=== PATIENT | female | born 1970 | race Two or more races ===

== ENCOUNTER 2017-01-08 07:37 | Observation (INO) | payer OTHER ==
--- NOTE | 2017-01-08 07:45 | PDOC ---
History of Present Illness - General Chief Complaint: Syncope/Near Syncope Stated Complaint: SYNCOPE Time Seen by Provider: 01/08/17 07:45 - History of Present Illness Initial Comments: 46 year old previously healthy female presenting with generalized weakness, blurry vision, nausea and one episode of unresponsiveness after a bout of frequent large volume urination. She states that she had 4-5 episodes of large volume (otherwise normal in color and normal in odor without dysuria) urination through the night and again around 6 AM this morning after which she was feeling weak while walking back from the bathroom to the bedroom. Her assisted her to the bed and she immediately had a 15 second episode of unresponsiveness when she layed back into the bed where her eyes were open and her hands were tensed. Her witnessed the episode and says there was no jerking or odd movements and the patient was simply unresponsive. The patient denies any knowledge of the event but had no issues directly after the event and remembers getting to the bed. She hasn't had this episode before. She is also complaining of "feeling my heart beat" and feels as if her heart is beating faster than usual with more prominence. She also complains of some nausea and blurry vision that started this morning. She denies any head trauma, tongue lacerations and has not had any of these symptoms in the past. She has a slightly drooped left eye at baseline. Denies family cardiac history. Denies fevers, chills, vomiting, diarrhea, constipation, chest pain, headache, or other sick symptoms. 01/08/17 08:45 Past History - Past Medical History Allergies/Adverse Reactions: Allergies Allergy/AdvReac Type Severity Reaction Status Date / Time No Known Allergies Allergy Verified 01/08/17 07:43 Home Medications: Ambulatory Orders Cephalexin [Keflex] 500 mg PO QID #28 capsule 12/17/14 Phenazopyridine HCl [Pyridium] 100 mg PO TID #6 tablet 12/17/14 Suicide Attempt (Hx): No - Immunization History Immunization Up to Date: Yes - Psycho/Social/Smoking Cessation Hx Anxiety: No Suicidal Ideation: No Smoking History: Never smoked Hx Alcohol Use: No Drug/Substance Use Hx: No Substance Use Type: None Hx Substance Use Treatment: No Review of Systems - Review of Systems Constitutional: Yes: Weakness. No: Chills, Diaphoresis, Fever HEENTM: Yes: Blurred Vision. No: Tearing, Double Vision Respiratory: No: Shortness of Breath Cardiac (ROS): No: Chest Pain ABD/GI: Yes: Nausea. No: Constipated, Diarrhea, Vomiting : Yes: Frequency. No: Dysuria, Discharge *Physical Exam - Physical Exam General Appearance: Yes: Nourished, Appropriately Dressed. No: Apparent Distress HEENT: positive: EOMI, RAEANN, Normal Voice Neck: positive: Trachea midline, Normal Thyroid, Supple. negative: Tender, Rigid Respiratory/Chest: positive: Lungs Clear, Normal Breath Sounds. negative: Chest Tender, Respiratory Distress, Accessory Muscle Use, Labored Respiration, Decreased Breath Sounds, Rhonchi, Stridor, Wheezing Cardiovascular: positive: Regular Rhythm, Regular Rate, S1, S2. negative: Edema , JVD, Murmur Gastrointestinal/Abdominal: positive: Normal Bowel Sounds, Flat, Soft. negative : Tender Musculoskeletal: positive: Normal Inspection. negative: CVA Tenderness Extremity: positive: Normal Capillary Refill, Normal Inspection, Normal Range of Motion. negative: Tender Integumentary: positive: Normal Color, Dry, Warm Neurologic: positive: sheet catcher II-XII NML intact, Fully Oriented, Alert, Normal Mood/ Affect, Motor Strength 5/5 ED Treatment Course - LABORATORY CBC & Chemistry Diagram: 01/08/17 09:05 01/08/17 09:05 Medical Decision Making - Medical Decision Making 46 year old previously healthy female with an episode of unresponsiveness in the setting of frequent urination, generalized weakness, and blurry vision. This is most concerning for hyperglycemia vs. electrolyte disorder vs. orthostatic hypotension. Most likely The former of the three given the constellation of symptoms and good recent PO intake and lack of medications that could cause electrolyte disorder. ACS is on our differential as well as arrhythmia despite lack of risk factors. 01/08/17 09:03 Electrolytes within normal limits, CBC fine, and UA normal with negative Troponin as well. Will admit for tele obs and consult to cards under Dr. Jimenez. *DC/Admit/Observation/Transfer Diagnosis at time of Disposition: Syncope, Palpitations - Discharge Dispostion Disposition: HOME Condition at time of disposition: Improved Admit: Yes Decision to Admit order Date/Time: 01/08/17 12:48
[2017-01-08 07:46] VITALS: BMI 28.3
[2017-01-08] MEDS ORDERED: MAG HYDROX/AL HYDROX/SIMETH 30 ML UNIT-DOSE CUP PO ONE (08:32)
[2017-01-08] MEDS ORDERED: FAMOTIDINE 20 MG/50 ML IVPB 50 ML IVPB ONE ×2 (08:33→09:18)
[2017-01-08] MEDS ORDERED: MAG HYDROX/AL HYDROX/SIMETH 30 ML UNIT-DOSE CUP ONE (09:17)
[2017-01-08 09:18] LABS: BASOPHIL 0.5 % (0-2.0); EOSINOPHIL 1.2 % (0-4.5); MCH 28.3 pg (25.7-33.7); MCHC 33.1 g/dl (32.0-36.0); MEAN CELL VOLUME 85.4 fl (80-96); MEAN PLT VOLUME 8.6 fl (7.5-11.1); NEUTROPHILS 78.4 % (42.8-82.8); PLATELET COUNT 320 K/MM3 (134-434); RDW 13.5 % (11.6-15.6); WHITE BLOOD COUNT 9.2 K/mm3 (4.0-10.0)
[2017-01-08] MEDS ORDERED: SODIUM CHLORIDE 1,000 ML IV STA (09:28)
[2017-01-08 09:42] LABS: ALBUMIN 3.5 g/dl (3.4-5.0); ANION GAP 5 (8-16); BILIRUBIN,TOTAL 0.4 mg/dL (0.2-1.0); CALCIUM 8.9 mg/dL (8.5-10.1); CO2 29 mmol/L (21-32); CREATININE 0.5 mg/dL (0.55-1.02); GLUCOSE,RANDOM 88 mg/dL (74-106); MAGNESIUM 2.3 mg/dL (1.8-2.4); SGOT/AST 14 U/L (15-37); SGPT/ALT 20 U/L (12-78); TOT PROT 7.1 g/dl (6.4-8.2)
[2017-01-08 09:43] LABS: ALK PHOS 63 U/L (45-117)
--- NOTE | 2017-01-08 09:44 | PDOC ---
Attending Attestation - Physicial Exam PE: 01/08/17 09:49 GENERAL: Awake, alert, and fully oriented, in no acute distress HEAD: No signs of trauma EYES: PERRLA, EOMI, sclera anicteric, conjunctiva clear. Denies blurry vision. ENT: Auricles normal inspection, hearing grossly normal, nares patent, oropharynx clear without exudates. Moist mucosa NECK: Normal ROM, supple, no lymphadenopathy, JVD, or masses LUNGS: Breath sounds equal, clear to auscultation bilaterally. No wheezes, and no crackles HEART: Complains of palpitations, Regular rate and rhythm, normal S1 and S2, no murmurs, rubs or gallops ABDOMEN: Soft, nontender, normoactive bowel sounds. No guarding, no rebound. No masses EXTREMITIES: Normal range of motion, no edema. No clubbing or cyanosis. No calf tenderness. No cords, erythema. NEUROLOGICAL: Cranial nerves II through XII grossly intact. Normal speech, normal gait. Sensation is intact. SKIN: Warm, Dry, normal turgor, no rashes or lesions noted. Documentation prepared by Eve Martinez, acting as medical education manager for Ramona Osborne DO. <Eve Martinez - Last Filed: 01/08/17 09:49> - Resident Resident Name: AnnemarieShaliniquirino - ED Attending Attestation I have performed the following: I have examined & evaluated the patient, The case was reviewed & discussed with the resident, I agree w/resident's findings & plan, Exceptions are as noted - HPI HPI: 01/08/17 09:42 46yo female with urinary freq last night. Then this AM, 15 seconds of syncope and palpitations. No recent travel. No calf ttp, no cp. C/o epigastric fullness. Concern for atypical presentation for cardiac problem. Will check labs , ekg, cxr, newscast director, trop, ua. Urinary freq without dysuria. - Medical Decision Making 01/08/17 09:42 I, Dr. Ramona Osborne DO, attest that this document has been prepared under my direction and personally reviewed by me in its entirety. I further attest, that it accurately reflects all work, treatment, procedures and medical decision -making performed by me. 01/08/17 09:55 a/p: 46yo female with urinary freq, syncope, epigastric discomfort and palpitations -concern for poss atypical presentation of cardiac -labs -cxr -ekg -nontraumatic syncope, in bed -neuro intact -low risk for neuro cause of syncope -PERC negative -will check UA, labs, glucose, monitor 01/08/17 11:30 labr reviewed -concern for epigastric pain, syncope, palpitations. UA clear. Will discuss with PMD. Recommend staying for syncope workup and further eval/trops. 01/08/17 12:[address] Wilkes who accepts pt to service. <Ramona Osborne - Last Filed: 01/08/17 12:01>
[2017-01-08 10:09] LABS: URINE APPEARANCE CLEAR; URINE BILIRUBIN NEGATIVE (NEGATIVE); URINE BLOOD 1+ (NEGATIVE); URINE COLOR STRAW; URINE GLUCOSE (UA) NEGATIVE (NEGATIVE); URINE KETONE NEGATIVE (NEGATIVE); URINE LEUK ESTERASE NEGATIVE (NEGATIVE); URINE NITRITE NEGATIVE (NEGATIVE); URINE PROTEIN NEGATIVE (NEGATIVE); URINE UROBILINOGEN NEGATIVE mg/dL (0.2-1.0)
[2017-01-08 10:26] LABS: URINE RBC <1 /hpf (0-3); URINE WBC 1 /hpf (3-5)
[2017-01-08 10:36] LABS: THYROID STIMULATING HORMONE 0.81 uIU/ml (0.358-3.74)
[2017-01-08 11:19] LABS: TROPONIN I 0.02 ng/ml (0.00-0.05)
--- NOTE | 2017-01-08 12:59 | HP ---
Admitting History and Physical - Primary Care Physician PCP: Nano Wilkes - Admission History of Present Illness: 46 year old previously healthy female presenting with generalized weakness, full feeling in her stomach and one episode of unresponsiveness after a bout of frequent large volume urination. She states that she had 4-5 episodes of large volume (otherwise normal in color and normal in odor without dysuria) urination through the night starting 2:00am, then 4;00am and then again around 6 AM this morning after which she was feeling weak while walking back from the bathroom to the bedroom. Her assisted her to the bed and she immediately had a 15 second episode of unresponsiveness when she layed back into the bed where her eyes were open and her hands were tensed. Her witnessed the episode and says there was no jerking or odd movements and the patient was simply unresponsive. The patient denies any knowledge of the event but had no issues directly after the event and remembers getting to the bed. She hasn't had this episode before. She is also complaining of "feeling my heart beat" and feels as if her heart is beating faster than usual with more prominence. curently she says her heart not beating fast and she doesnot feel urge to urinate but she has full feeling in her stomach in ER she got famotidine and maalox History Source: Patient - Smoking History Smoking history: Never smoked Have you smoked in the past 12 months: No - Alcohol/Substance Use Hx Alcohol Use: No Home Medications - Allergies Allergies/Adverse Reactions: Allergies Allergy/AdvReac Type Severity Reaction Status Date / Time No Known Allergies Allergy Verified 01/08/17 07:43 - Home Medications Home Medications: Ambulatory Orders Cephalexin [Keflex] 500 mg PO QID #28 capsule 12/17/14 Phenazopyridine HCl [Pyridium] 100 mg PO TID #6 tablet 12/17/14 Review of Systems - Review of Systems Neck: reports: Other (left sided neck pain) Gastrointestinal: reports: Other (fullness of stomach) Physical Examination Vital Signs: Vital Signs Temperature 97.6 F 01/08/17 07:44 Pulse Rate 83 01/08/17 07:44 Respiratory Rate 20 01/08/17 07:44 Blood Pressure 112/74 01/08/17 07:44 O2 Sat by Pulse Oximetry (%) 97 01/08/17 07:44 Constitutional: Yes: Calm Neck: Yes: Trachea Midline Cardiovascular: Yes: Regular Rate and Rhythm, S1, S2 Respiratory: Yes: CTA Bilaterally Gastrointestinal: Yes: Normal Bowel Sounds, Soft Musculoskeletal: Yes: Other (no neck swelling no deformity no tenderness) Edema: No Neurological: Yes: Alert, Oriented Imaging - Results Chest X-ray: Report Reviewed Problem List - Problems (1) Syncope Assessment/Plan: tele carotid doppler echo lipid panel hga1c Code(s): R55 - SYNCOPE AND COLLAPSE (2) Palpitations Assessment/Plan: r/o arythmia tsh tele echo cardio evaluation Code(s): R00.2 - PALPITATIONS (3) Bloating Assessment/Plan: abdominal sono lipase gi eval Code(s): R14.0 - ABDOMINAL DISTENSION (GASEOUS) (4) Increased urinary frequency Assessment/Plan: check hga1c urine culture and anaylsis Code(s): R35.0 - FREQUENCY OF MICTURITION
--- NOTE | 2017-01-08 13:23 | CON.CARD ---
Consult Consult Specialty:: Cardiology - History of Present Illness Chief Complaint: syncope History of Present Illness: 46 F without medical problems. She had urinary frequency last night. At 6 AM after returning form she had sweats weakness and diaphoresis and then passed out. No prior history of syncope, arrhythmia. There is a prior history of palpitations which wake her up at night. Denies fevers but reports chills over- night. - History Source History Provided By: Patient, Family Member Limitations to Obtaining History: No Limitations - Past Surgical History Past Surgical History: Yes: None - Alcohol/Substance Use Hx Alcohol Use: No - Smoking History Smoking history: Never smoked Have you smoked in the past 12 months: No Home Medications - Allergies Allergies/Adverse Reactions: Allergies Allergy/AdvReac Type Severity Reaction Status Date / Time No Known Allergies Allergy Verified 01/08/17 07:43 - Home Medications Home Medications: Ambulatory Orders Cephalexin [Keflex] 500 mg PO QID #28 capsule 12/17/14 Phenazopyridine HCl [Pyridium] 100 mg PO TID #6 tablet 12/17/14 Family Disease History - Family Disease History Family History: Unremarkable (no fhx sudden ) Review of Systems - Review of Systems Constitutional: reports: No Symptoms Eyes: reports: No Symptoms HENT: reports: No Symptoms Neck: reports: No Symptoms Cardiovascular: reports: Palpitations Respiratory: reports: No Symptoms Gastrointestinal: reports: No Symptoms Genitourinary: reports: Frequency Breasts: reports: No Symptoms Reported Musculoskeletal: reports: No Symptoms Vital Signs: Vital Signs Temperature 97.6 F 01/08/17 07:44 Pulse Rate 83 01/08/17 07:44 Respiratory Rate 20 01/08/17 07:44 Blood Pressure 112/74 01/08/17 07:44 O2 Sat by Pulse Oximetry (%) 97 01/08/17 07:44 Constitutional: Yes: Well Nourished, No Distress, Calm Eyes: Yes: Conjunctiva Clear, EOM Intact HENT: Yes: Atraumatic, Normocephalic Neck: Yes: Supple, Trachea Midline Respiratory: Yes: Regular, CTA Bilaterally Gastrointestinal: Yes: Normal Bowel Sounds, Soft Cardiovascular: Yes: Regular Rate and Rhythm JVD: No Carotid Bruit: No PMI: Non-Displaced Heart Sounds: Yes: S1, S2 Musculoskeletal: Yes: WNL Edema: No Integumentary: Yes: WNL Neurological: Yes: Alert, Oriented Imaging - Results EKG: Report Reviewed (NSR Nl axis and interval.) Problem List - Problems (1) Palpitations Code(s): R00.2 - PALPITATIONS (2) Syncope Code(s): R55 - SYNCOPE AND COLLAPSE Assessment/Plan 46 F with chronic ho palpitations and presenting with post micturition syncope. ECG is normal. Advise monitoring on telemetry for 24 hours and obtain echocardiogram Likely to be vasovagal and post-micturition syncope.
--- NOTE | 2017-01-08 15:20 | EKG ---
Test Reason : Blood Pressure : / mmHG Vent. Rate : 081 BPM Atrial Rate : 081 BPM P-R Int : 154 ms QRS Dur : 078 ms QT Int : 348 ms P-R-T Axes : 041 047 005 degrees QTc Int : 404 ms POOR DATA QUALITY, INTERPRETATION MAY BE ADVERSELY AFFECTED NORMAL SINUS RHYTHM NORMAL ECG NO PREVIOUS ECGS AVAILABLE Confirmed by NUNO HAMILTON MD ([id number]) on 01/08/2017 3:19:46 PM Referred By: Confirmed By:NUNO HAMILTON MD
[2017-01-08 15:56] LABS: TROPONIN I 0.02 ng/ml (0.00-0.05)
--- NOTE | 2017-01-09 08:30 | DS ---
Physical Examination Vital Signs: Vital Signs Temperature 98.6 F 01/09/17 05:25 Pulse Rate 80 01/09/17 05:25 Respiratory Rate 18 01/09/17 05:25 Blood Pressure 109/67 01/09/17 05:25 O2 Sat by Pulse Oximetry (%) 97 01/08/17 20:00 Findings/Remarks: no complaints Cardiovascular: Yes: Regular Rate and Rhythm Respiratory: Yes: Regular, CTA Bilaterally Gastrointestinal: Yes: Normal Bowel Sounds, Soft. No: Tenderness Edema: No Neurological: Yes: Alert, Oriented Discharge Summary Reason For Visit: SYNCOPE Current Active Problems Increased urinary frequency (Acute) Palpitations (Acute) Syncope (Acute) Hospital Course: 46 year old previously healthy female presenting with generalized weakness, full feeling in her stomach and one episode of unresponsiveness after a bout of frequent large volume urination. She states that she had 4-5 episodes of large volume (otherwise normal in color and normal in odor without dysuria) urination through the night starting 2:00am, then 4;00am and then again around 6 AM this morning after which she was feeling weak while walking back from the bathroom to the bedroom. Her assisted her to the bed and she immediately had a 15 second episode of unresponsiveness when she layed back into the bed where her eyes were open and her hands were tensed. Her witnessed the episode and says there was no jerking or odd movements and the patient was simply unresponsive. The patient denies any knowledge of the event but had no issues directly after the event and remembers getting to the bed. She hasn't had this episode before. She is also complaining of "feeling my heart beat" and feels as if her heart is beating faster than usual with more prominence. curently she says her heart not beating fast and she doesnot feel urge to urinate but she has full feeling in her stomach in ER she got famotidine and maalox History Source: Patient - Smoking History Smoking history: Never smoked - Problems (1) Syncope--probably micturation syncope Assessment/Plan: tele --no arrhythmia noted carotid doppler echo nl lv lipid panel hga1c Code(s): R55 - SYNCOPE AND COLLAPSE (2) Palpitations Assessment/Plan: r/o arrhythmia--none on tele tsh cardio evaluation noted Code(s): R00.2 - PALPITATIONS (3) Bloating Assessment/Plan: abdominal sono lipase gi eval Code(s): R14.0 - ABDOMINAL DISTENSION (GASEOUS) (4) Increased urinary frequency Assessment/Plan: check hga1c urine culture and analysis Code(s): R35.0 - FREQUENCY OF MICTURITION Condition: Improved - Instructions Referrals: Nano Wilkes MD [Primary Care Provider] - 1 Week - Home Medications Comprehensive Discharge Medication List: Ambulatory Orders Cephalexin [Keflex] 500 mg PO QID #28 capsule 12/17/14 Phenazopyridine HCl [Pyridium] 100 mg PO TID #6 tablet 12/17/14
[2017-01-09 08:32] LABS: BASOPHIL 1.3 % (0-2.0); EOSINOPHIL 1.2 % (0-4.5); MCH 27.9 pg (25.7-33.7); MCHC 32.8 g/dl (32.0-36.0); MEAN PLT VOLUME 8.5 fl (7.5-11.1); PLATELET COUNT 323 K/MM3 (134-434); RDW 13.4 % (11.6-15.6); WHITE BLOOD COUNT 7.5 K/mm3 (4.0-10.0)
[2017-01-09 08:41] VITALS: PULSE 86
[2017-01-09 08:54] LABS: ALBUMIN 3.5 g/dl (3.4-5.0); ANION GAP 10 (8-16); BILIRUBIN,TOTAL 0.6 mg/dL (0.2-1.0); CALCIUM 8.5 mg/dL (8.5-10.1); CO2 24 mmol/L (21-32); CREATININE 0.5 mg/dL (0.55-1.02); GLUCOSE,RANDOM 85 mg/dL (74-106); SGOT/AST 15 U/L (15-37); SGPT/ALT 20 U/L (12-78)
[2017-01-09 08:56] LABS: ALK PHOS 59 U/L (45-117); CPK 80 IU/L (26-192); TROPONIN I < 0.02 ng/ml (0.00-0.05)
--- NOTE | 2017-01-09 09:47 | CONSULT ---
Consult - text type - Consultation Consultation Note: Neurology History of Present Illness 46 year old previously healthy female presenting with generalized weakness, blurry vision, nausea and one episode of unresponsiveness after a bout of frequent large volume urination. She states that she had 4-5 episodes of large volume (otherwise normal in color and normal in odor without dysuria) urination through the night before admission and again morning of admission which she was feeling weak while walking back from the bathroom to the bedroom. Her assisted her to the bed and she immediately had a 15 second episode of unresponsiveness when she got back into the bed where her eyes were open and her hands were tensed. Her witnessed the episode and says there was no jerking or odd movements and the patient was simply unresponsive. The patient denies any knowledge of the event but had no issues directly after the event and remembers getting to the bed. She hasn't had this episode before. She is also complaining of "feeling my heart beat" and feels as if her heart is beating faster than usual with more prominence. She did get cardiac evaluation wand consult with likely postmicturation syncope. CD checked and did not show HD significant stenosis. Echo with normal LV function and no valvular abnormalities. CT head reviwed also and no acute changes. Neurologically she is stable and at baseline. Past History - Past Medical History Allergies/Adverse Reactions: Allergies Allergy/AdvReac Type Severity Reaction Status Date / Time No Known Allergies Allergy Verified 01/08/17 07:43 Home Medications: Ambulatory Orders Cephalexin [Keflex] 500 mg PO QID #28 capsule 12/17/14 Phenazopyridine HCl [Pyridium] 100 mg PO TID #6 tablet 12/17/14 Suicide Attempt (Hx): No - Immunization History Immunization Up to Date: Yes - Psycho/Social/Smoking Cessation Hx Anxiety: No Suicidal Ideation: No Smoking History: Never smoked Hx Alcohol Use: No Drug/Substance Use Hx: No Substance Use Type: None Hx Substance Use Treatment: No Review of Systems - Review of Systems Constitutional: Yes: Weakness. No: Chills, Diaphoresis, Fever HEENTM: Yes: Blurred Vision. No: Tearing, Double Vision Respiratory: No: Shortness of Breath Cardiac (ROS): No: Chest Pain ABD/GI: Yes: Nausea. No: Constipated, Diarrhea, Vomiting : Yes: Frequency. No: Dysuria, Discharge *Physical Exam - Physical Exam General Appearance: Yes: Nourished, Appropriately Dressed. No: Apparent Distress HEENT: positive: EOMI, RAEANN, Normal Voice Neck: positive: Trachea midline, Normal Thyroid, Supple. negative: Tender, Rigid Respiratory/Chest: positive: Lungs Clear, Normal Breath Sounds. negative: Chest Tender, Respiratory Distress, Accessory Muscle Use, Labored Respiration, Decreased Breath Sounds, Rhonchi, Stridor, Wheezing Cardiovascular: positive: Regular Rhythm, Regular Rate, S1, S2. negative: Edema , JVD, Murmur Gastrointestinal/Abdominal: positive: Normal Bowel Sounds, Flat, Soft. negative : Tender Musculoskeletal: positive: Normal Inspection. negative: CVA Tenderness Extremity: positive: Normal Capillary Refill, Normal Inspection, Normal Range of Motion. negative: Tender Integumentary: positive: Normal Color, Dry, Warm Neurologic: positive: plant custodian II-XII NML intact, Fully Oriented, Alert, Normal Mood/ Affect, Motor Strength 08/29 ED Treatment Course CBCD WBC 7.5 K/mm3 (4.0-10.0) 01/09/17 08:00 RBC 4.75 M/mm3 (3.60-5.2) 01/09/17 08:00 Hgb 13.2 GM/dL (10.7-15.3) 01/09/17 08:00 Hct 40.4 % (32.4-45.2) 01/09/17 08:00 MCV 85.0 fl (80-96) 01/09/17 08:00 MCHC 32.8 g/dl (32.0-36.0) 01/09/17 08:00 RDW 13.4 % (11.6-15.6) 01/09/17 08:00 Plt Count 323 K/MM3 (134-434) 01/09/17 08:00 MPV 8.5 fl (7.5-11.1) 01/09/17 08:00 CMP Sodium 139 mmol/L (136-145) 01/09/17 08:00 Potassium 3.8 mmol/L (3.5-5.1) 01/09/17 08:00 Chloride 105 mmol/L (98-107) 01/09/17 08:00 Carbon Dioxide 24 mmol/L (21-32) 01/09/17 08:00 Anion Gap 10 (8-16) 01/09/17 08:00 BUN 13 mg/dL (7-18) D 01/09/17 08:00 Creatinine 0.5 mg/dL (0.55-1.02) L 01/09/17 08:00 Creat Clearance w eGFR > 60 (>60) 01/09/17 08:00 Calcium 8.5 mg/dL (8.5-10.1) 01/09/17 08:00 Total Bilirubin 0.6 mg/dL (0.2-1.0) D 01/09/17 08:00 AST 15 U/L (15-37) 01/09/17 08:00 ALT 20 U/L (12-78) 01/09/17 08:00 Alkaline Phosphatase 59 U/L (45-117) 01/09/17 08:00 Total Protein 7.0 g/dl (6.4-8.2) 01/09/17 08:00 Albumin 3.5 g/dl (3.4-5.0) 01/09/17 08:00 Medical Decision Making 46 year old previously healthy female presenting with generalized weakness, blurry vision, nausea and one episode of unresponsiveness after a bout of frequent large volume urination. She states that she had 4-5 episodes of large volume (otherwise normal in color and normal in odor without dysuria) urination through the night before admission and again morning of admission which she was feeling weak while walking back from the bathroom to the bedroom. Her assisted her to the bed and she immediately had a 15 second episode of unresponsiveness when she got back into the bed where her eyes were open and her hands were tensed. Her witnessed the episode and says there was no jerking or odd movements and the patient was simply unresponsive. The patient denies any knowledge of the event but had no issues directly after the event and remembers getting to the bed. She hasn't had this episode before. She is also complaining of "feeling my heart beat" and feels as if her heart is beating faster than usual with more prominence. She did get cardiac evaluation wand consult with likely postmicturation syncope. CD checked and did not show HD significant stenosis. Echo with normal LV function and no valvular abnormalities. CT head reviwed also and no acute changes. Neurologically she is stable and at baseline. Plan is for discharge Follow up with Cardiology If event recurs, would check EEG or can be done as outpatient Maintain hydration Avoid sudden ambulation
--- NOTE | 2017-01-09 09:53 | DS ---
Physical Examination Vital Signs: Vital Signs Temperature 98.7 F 01/09/17 08:40 Pulse Rate 86 01/09/17 08:40 Respiratory Rate 20 01/09/17 08:40 Blood Pressure 107/75 01/09/17 08:40 O2 Sat by Pulse Oximetry (%) 97 01/08/17 20:00 Constitutional: Yes: Calm Neck: Yes: Trachea Midline Cardiovascular: Yes: Regular Rate and Rhythm, S1, S2 Respiratory: Yes: CTA Bilaterally Gastrointestinal: Yes: Normal Bowel Sounds, Soft Edema: No Neurological: Yes: Alert, Oriented Discharge Summary Reason For Visit: SYNCOPE Current Active Problems Increased urinary frequency (Acute) Palpitations (Acute) Syncope (Acute) Hospital Course: Primary Care Physician PCP: Nano Wilkes - Admission History of Present Illness: 46 year old previously healthy female presenting with generalized weakness, full feeling in her stomach and one episode of unresponsiveness after a bout of frequent large volume urination. She states that she had 4-5 episodes of large volume (otherwise normal in color and normal in odor without dysuria) urination through the night starting 2:00am, then 4;00am and then again around 6 AM this morning after which she was feeling weak while walking back from the bathroom to the bedroom. Her assisted her to the bed and she immediately had a 15 second episode of unresponsiveness when she layed back into the bed where her eyes were open and her hands were tensed. Her witnessed the episode and says there was no jerking or odd movements and the patient was simply unresponsive. The patient denies any knowledge of the event but had no issues directly after the event and remembers getting to the bed. She hasn't had this episode before. She is also complaining of "feeling my heart beat" and feels as if her heart is beating faster than usual with more prominence. curently she says her heart not beating fast and she doesnot feel urge to urinate but she has full feeling in her stomach in ER she got famotidine and maalox History Source: Patient - Smoking History Smoking history: Never smoked Have you smoked in the past 12 months: No admitted to tele floor: echo done normal ekg normal carotid doppler normal abdominal sono small umbilical hernia cardio saw patient looks like post micturation syndrome, vasovagal appreciate neuro input as well today patient is feeling much better plan to dc home today Condition: Improved - Instructions Referrals: Nano Wilkes MD [Primary Care Provider] - 1 Week Disposition: HOME - Home Medications Comprehensive Discharge Medication List: Ambulatory Orders Cephalexin [Keflex] 500 mg PO QID #28 capsule 12/17/14 Phenazopyridine HCl [Pyridium] 100 mg PO TID #6 tablet 12/17/14
[2017-01-09] MEDS ORDERED: RANITIDINE HCL 150 MG TABLET (FP) PO SCH ×2 (10:00→10:30)
[2017-01-09 14:56] VITALS: BP 105/63; TEMP 98.2
== END 2017-01-09 18:37 | disposition home or self-care (01) ==
LOC: JER 07:37 → JERBED 11:50 → UNDOADMOB 11:50 → INTOOBSV 13:01 → OBSVTOIN 13:01 → JERBED 17:55 → J4W 17:55 → UNDODISIN 18:41 → J4W 01-09 08:32 → JERBED 01-09 08:32
PROVIDERS: ADMIT Family Medicine; ATTEND Family Medicine
PROC: 3E0337Z Introduction of Electrolytic and Water Balance Substance into Peripheral Vein, Percutaneous Approach (ICD-10-PCS; principal; 2017-01-09)
PROC: 3E033GC Introduction of Other Therapeutic Substance into Peripheral Vein, Percutaneous Approach (ICD-10-PCS; 2017-01-09)
DX: R55 Syncope and collapse (principal)
CPT/HCPCS: 36415; 70450-TC; 71020-TC; 76700-TC; 80053; 80061; 81003; 81015; 82009; 83721; 83735; 84443; 84484; 84703; 85025; 87086; 93005; 93010; 93306-TC; 93880-TC; 99285-25; G0378

== ENCOUNTER 2018-07-19 16:22 | Emergency (ER) | payer OTHER ==
[2018-07-19 16:34] VITALS: BP 134/66; PULSE 77; TEMP 98; BMI 30.2
--- NOTE | 2018-07-19 17:07 | PDOC ---
Attending Attestation - HPI HPI: 07/19/18 18:05 The patient is a 47 year old female, with no significant past medical history, who presents to the emergency department with, chest pain described as a tightness radiating to the left arm with associated numbness/tingling and back pain (chronic in nature) described as a worsening hot sensation to the left scapula. Patient was recently diagnosed with temporal arthritis and treated with steroids then upon evaluation of her surgeon it was found not to be temporal arthritis and was given rheumatology follow-up. She denies recent fevers or chills. She denies recent nausea, vomit, diarrhea or constipation. She denies recent dysuria, frequency, urgency or hematuria. She denies recent shortness of breath. Allergies: NKDA Primary Care Physician: Dr. Wilkes - Physicial Exam PE: 07/19/18 19:09 GENERAL: Well developed, well nourished. Awake and alert. No acute distress. HEENT: Normocephalic, atraumatic. PERRLA, EOMI. No conjunctival pallor. Sclera are non- icteric. Moist mucous membranes. Oropharynx is clear. NECK: Supple. Full ROM. No JVD. Carotid pulses 2+ and symmetric, without bruits. No thyromegaly. No lymphadenopathy. CARDIOVASCULAR: Regular rate and rhythm. No murmurs, rubs, or gallops. Distal pulses are 2+ and symmetric. PULMONARY: No evidence of respiratory distress. Lungs clear to auscultation bilaterally. No wheezing, rales or rhonchi. ABDOMINAL: Soft. Non-tender. Non-distended. No rebound or guarding. No organomegaly. Normoactive bowel sounds. MUSCULOSKELETAL Normal range of motion at all joints. No bony deformities or tenderness. No CVA tenderness. EXTREMITIES: No cyanosis. No clubbing. No edema. No calf tenderness. SKIN: Warm and dry. Normal capillary refill. No rashes. No jaundice. NEUROLOGICAL: Alert, awake, appropriate. Cranial nerves 2-12 intact. No deficits to light touch and temperature in face, upper extremities and lower extremities. No motor deficits in the in face, upper extremities and lower extremities. Normal speech. Gait is normal without ataxia. PSYCHIATRIC: Cooperative. Good eye contact. Appropriate mood and affect. <Marsha Dacosta - Last Filed: 07/19/18 19:08> - Resident Resident Name: Lolis Flor - ED Attending Attestation I have performed the following: I have examined & evaluated the patient, The case was reviewed & discussed with the resident (Va Ramsay Is now being addressed) , I agree w/resident's findings & plan, Exceptions are as noted - Medical Decision Making 07/19/18 17:56 87-year-old female presents with chest pain and back pain for the past 4-5 days. She has complaint of her upper left upper scapular area and also states that she is a chest tightness that radiates to her left arm with some numbness and tingling. She has a long-standing history of vertigo and takes meclizine daily. Family history no history of early cardiac demise. Patient has been told that she has some elevated inflammatory markers and reviewing her labs shows elevated sedimentation rate and C-reactive protein. She does have a rheumatology appointment this . 07/19/18 19:15 plan 2 cardiac enzymes then d/c home <Alison Rahman - Last Filed: 07/19/18 19:15> Attestations - Attestations 07/19/18 18:06 Documentation prepared by Marsha Dacosta, acting as medical library assistant for Alison Rahman MD. <Marsha Dacosta - Last Filed: 07/19/18 19:08>
[2018-07-19] MEDS ORDERED: KETOROLAC TROMETHAMINE 30 MG/1 ML VIAL IM ONE (17:26)
--- NOTE | 2018-07-19 17:37 | PDOC ---
History of Present Illness - General Chief Complaint: Chest Pain Stated Complaint: BACK PAIN CHEST PAIN Time Seen by Provider: 07/19/18 16:54 History Source: Patient, Family - History of Present Illness Initial Comments: 07/19/18 17:28 Patient is a 47 y/o female with no medical history who presents for chest pain and back pain. The back pain started about four days ago and it has gotten worse. She has not taken any medication to see if it gets better. She has also recently told that her inflammation markers were high. She was taking steroids for possible temporal arteritis but has since been told she does not have it. The chest pain radiates down her right arm and she has some tingling. She states the pain is in her left scapula and cause a burning sensation. She reports she sometimes has a rash on her chest. She has no other acute complaints. Past History - Past Medical History Allergies/Adverse Reactions: Allergies Allergy/AdvReac Type Severity Reaction Status Date / Time No Known Allergies Allergy Verified 07/19/18 16:34 COPD: No - Immunization History Immunization Up to Date: Yes - Suicide/Smoking/Psychosocial Hx Smoking History: Never smoked Have you smoked in the past 12 months: No Hx Alcohol Use: No Drug/Substance Use Hx: No Substance Use Type: None Hx Substance Use Treatment: No Review of Systems - Review of Systems Constitutional: No: Chills, Fever Respiratory: No: Cough, Shortness of Breath Cardiac (ROS): Yes: Chest Pain ABD/GI: No: Diarrhea, Nausea : No: Burning Musculoskeletal: Yes: Back Pain Neurological: No: Headache, Numbness *Physical Exam - Vital Signs Last Vital Signs Temp Pulse Resp BP Pulse Ox 98.0 F 77 16 134/66 97 07/19/18 16:31 07/19/18 16:31 07/19/18 16:31 07/19/18 16:31 07/19/18 16:31 - Physical Exam Comments: 07/19/18 18:00 GENERAL: A&O x3, no acute distress HEENT: mild malar rash HEART: RRR, no murmurs, rubs, or gallops LUNGS: CTAL B/L, no rhonchi or rubs ABDOMEN: soft, non distended, non tender MSK: left scapular pain mild tenderness to palpation EXTREMITIES: no pitting edema ED Treatment Course - LABORATORY CBC & Chemistry Diagram: 07/19/18 18:20 07/19/18 18:20 Medical Decision Making - Medical Decision Making 07/22/18 16:52 patient sign out to Dr. Harvey *DC/Admit/Observation/Transfer Diagnosis at time of Disposition: Atypical chest pain - Discharge Dispostion Disposition: HOME Condition at time of disposition: Stable - Referrals Referrals: Nano Wilkes MD [Primary Care Provider] - - Patient Instructions Printed Discharge Instructions: DI for Atypical Chest Pain Additional Instructions: You were seen in the ED for complaints of chest pain for 4 days. In the ED you were evaluated with labwork and imaging. Your results were largely unremarkable There does not appear to be an acute need for immediate hospitalization. You are advised to follow up with your Primary Care Physician within 1 week. Return to the ED immediately if you experience worsening chest pain, nausea, sweating, lightheadedness, palpitation, shortness of breath or loss of consciousness. - Post Discharge Activity
[2018-07-19] MEDS ORDERED: KETOROLAC TROMETHAMINE 30 MG/1 ML VIAL ONE (18:32)
[2018-07-19 18:43] LABS: HEMATOCRIT 38.6 % (32.4-45.2); HEMOGLOBIN 13.1 GM/dL (10.7-15.3); MCH 29.1 pg (25.7-33.7); MEAN CELL VOLUME 85.5 fl (80-96); MEAN PLT VOLUME 9.5 fl (7.5-11.1); PLATELET COUNT 308 K/MM3 (134-434); RBC 4.51 M/mm3 (3.60-5.2); RDW 13.8 % (11.6-15.6); WHITE BLOOD COUNT 9.4 K/mm3 (4.0-10.0)
[2018-07-19 19:10] LABS: ALBUMIN 3.6 g/dl (3.4-5.0); ALK PHOS 75 U/L (45-117); ANION GAP 7 MMOL/L (8-16); BILIRUBIN,TOTAL 0.2 mg/dL (0.2-1); BLOOD UREA NITROGEN 17 mg/dL (7-18); CALCIUM 8.8 mg/dL (8.5-10.1); CHLORIDE 106 mmol/L (98-107); CO2 27 mmol/L (21-32); CREATININE 0.8 mg/dL (0.55-1.3); GLUCOSE,RANDOM 86 mg/dL (74-106); POTASSIUM 4.3 mmol/L (3.5-5.1); SGOT/AST 16 U/L (15-37); SGPT/ALT 23 U/L (13-61); SODIUM 140 mmol/L (136-145); TOT PROT 7.2 g/dl (6.4-8.2)
--- NOTE | 2018-07-19 19:25 | PDOC ---
*Physical Exam - Vital Signs Last Vital Signs Temp Pulse Resp BP Pulse Ox 98.0 F 77 16 134/66 97 07/19/18 16:31 07/19/18 16:31 07/19/18 16:31 07/19/18 16:31 07/19/18 16:31 <Alison Rahman - Last Filed: 07/19/18 22:20> - Vital Signs Last Vital Signs Temp Pulse Resp BP Pulse Ox 98.0 F 77 16 134/66 97 07/19/18 16:31 07/19/18 16:31 07/19/18 16:31 07/19/18 16:31 07/19/18 16:31 - Physical Exam Comments: 07/19/18 21:10 GENERAL: Awake, alert, and fully oriented, in no acute distress HEAD: No signs of trauma, normocephalic, atraumatic EYES: EOMI, sclera anicteric, conjunctiva clear ENT: oropharynx clear without exudates. Moist mucosa NECK: Normal ROM, supple LUNGS: No distress, speaks full sentences, clear to auscultation bilaterally HEART: Regular rate and rhythm, normal S1 and S2, no murmurs, rubs or gallops, peripheral pulses normal and equal bilaterally. ABDOMEN: Soft, nontender, normoactive bowel sounds. No guarding, no rebound. No masses EXTREMITIES : Normal inspection, Normal range of motion, no edema. No clubbing or cyanosis. NEUROLOGICAL: Cranial nerves II through XII grossly intact. Normal speech, normal gait, no focal sensorimotor deficits SKIN: Warm, Dry, normal turgor, no rashes or lesions noted <Yazmin Harvey - Last Filed: 07/19/18 22:22> ED Treatment Course - LABORATORY CBC & Chemistry Diagram: 07/19/18 18:20 07/19/18 18:20 - ADDITIONAL ORDERS Additional order review: Laboratory Results 07/19/18 07/19/18 07/19/18 21:15 20:01 18:20 Sodium 140 Potassium 4.3 Chloride 106 Carbon Dioxide 27 Anion Gap 7 L BUN 17 Creatinine 0.8 Creat Clearance w eGFR 76.56 Random Glucose 86 Calcium 8.8 Total Bilirubin 0.2 AST 16 ALT 23 Alkaline Phosphatase 75 Creatine Kinase 89 Troponin I < 0.02 < 0.02 Total Protein 7.2 Albumin 3.6 Urine Color Yellow Urine Appearance Cloudy Urine pH 6.0 D Ur Specific Kincaid 1.024 Urine Protein Negative Urine Glucose (UA) Negative Urine Ketones Negative Urine Blood Trace Urine Nitrite Negative Urine Bilirubin Negative Urine Urobilinogen 0.2 Ur Leukocyte Esterase Negative Urine WBC (Auto) 1 Urine RBC (Auto) 3 Urine Casts (Auto) 2 U Epithel Cells (Auto) 3.2 Urine Crystals (Auto) None seen Urine Bacteria (Auto) 46.062 Urine HCG, Qual Negative 07/19/18 18:20 RBC 4.51 MCV 85.5 MCHC 34.0 RDW 13.8 MPV 9.5 D - Medications Given in the ED: ED Medications Discontinued Medications Generic Name Dose Route Start Last Admin Trade Name Freq PRN Reason Stop Dose Admin Ketorolac Tromethamine 30 mg 07/19/18 17:26 07/19/18 18:38 Toradol Injection - IM 07/19/18 17:27 30 mg ONCE ONE Administration <Alison Rahman - Last Filed: 07/19/18 22:20> - LABORATORY CBC & Chemistry Diagram: 07/19/18 18:20 07/19/18 18:20 - ADDITIONAL ORDERS Additional order review: 07/19/18 18:20 RBC 4.51 MCV 85.5 MCHC 34.0 RDW 13.8 MPV 9.5 D - Medications Given in the ED: ED Medications Discontinued Medications Generic Name Dose Route Start Last Admin Trade Name Freq PRN Reason Stop Dose Admin Ketorolac Tromethamine 30 mg 07/19/18 17:26 07/19/18 18:38 Toradol Injection - IM 07/19/18 17:27 30 mg ONCE ONE Administration <Yazmin Harvey - Last Filed: 07/19/18 22:22> Medical Decision Making - Medical Decision Making 07/19/18 19:10 Patient signed out by resident Dr. Flor In short patient with uknown rhuem disorder who presents withchest pain and back pain ongoing for 4 days. EKG unremarkable in the ED ED Course: pending CBC, CMP, trop trop negative, cbc,cmp wnl ua neg. upreg neg repeat trop pending cxr d/c if wnl 07/19/18 22:22 trop unremarkable cxr midline airway, appropriate vascular markings, no blunting of costophrenic angle, no cardiomegaly, as read by this jingle writer and attending. Patient stable for discharge Informed of all lab and imaging results. Given follow up instructions and strict return precautions. Patient expressed understanding and agree to plan. <TyshawnmadanYazmin - Last Filed: 07/19/18 22:22> *DC/Admit/Observation/Transfer <Alison Rahman - Last Filed: 07/19/18 22:20> - Discharge Dispostion Decision to Admit order: No <Dina Harveyie - Last Filed: 07/19/18 22:22> Diagnosis at time of Disposition: Atypical chest pain - Discharge Dispostion Disposition: HOME Condition at time of disposition: Stable - Referrals Referrals: Nano Wilkes MD [Primary Care Provider] - - Patient Instructions Printed Discharge Instructions: DI for Atypical Chest Pain Additional Instructions: You were seen in the ED for complaints of chest pain for 4 days. In the ED you were evaluated with labwork and imaging. Your results were largely unremarkable There does not appear to be an acute need for immediate hospitalization. You are advised to follow up with your Primary Care Physician within 1 week. Return to the ED immediately if you experience worsening chest pain, nausea, sweating, lightheadedness, palpitation, shortness of breath or loss of consciousness. - Post Discharge Activity
[2018-07-19 20:22] LABS: EPI CELLS 3.2 /HPF (0-5); HYALINE CASTS 2 /hpf (0-8); URINE APPEARANCE CLOUDY; URINE BACTERIA 46.062 /hpf (NEGATIVE); URINE BILIRUBIN NEGATIVE (NEGATIVE); URINE COLOR YELLOW; URINE GLUCOSE (UA) NEGATIVE (NEGATIVE); URINE KETONE NEGATIVE (NEGATIVE); URINE LEUK ESTERASE NEGATIVE (NEGATIVE); URINE NITRITE NEGATIVE (NEGATIVE); URINE PROTEIN NEGATIVE (NEGATIVE); URINE RBC 3 /hpf (0-4); URINE UROBILINOGEN 0.2 mg/dL (0.2-1.0); URINE WBC 1 /hpf (0-5)
[2018-07-19 20:23] LABS: HCG,QUALITATIVE URINE Negative
[2018-07-19 20:24] LABS: URINE CRYSTALS NONE SEEN /hpf
--- NOTE | 2018-07-20 09:21 | EKG ---
Test Reason : Blood Pressure : / mmHG Vent. Rate : 078 BPM Atrial Rate : 078 BPM P-R Int : 146 ms QRS Dur : 074 ms QT Int : 370 ms P-R-T Axes : 048 062 032 degrees QTc Int : 421 ms NORMAL SINUS RHYTHM NONSPECIFIC ST ABNORMALITY ABNORMAL ECG WHEN COMPARED WITH ECG OF 08-JAN-2017 15:20, NO SIGNIFICANT CHANGE WAS FOUND Confirmed by PAMELA STOCK MD ([id number]) on 07/20/2018 9:21:33 AM Referred By: Confirmed By:PAMELA STOCK MD
== END 2018-07-19 22:25 | disposition home or self-care (01) ==
LOC: JER 16:22
PROC: 3E0233Z Introduction of Anti-inflammatory into Muscle, Percutaneous Approach (ICD-10-PCS; principal; 2018-07-19)
DX: R07.9 Chest pain, unspecified (principal)
CPT/HCPCS: 36415; 71046-TC-FY; 80053; 81003; 82550; 84484; 84703; 85027; 93005; 93010; 96372; 99282-25

== ENCOUNTER 2019-05-15 15:33 | Emergency (ER) | payer OTHER ==
[2019-05-15 15:39] VITALS: BP 136/54; PULSE 63; TEMP 98.4; BMI 30.1
--- NOTE | 2019-05-15 16:08 | PDOC ---
History of Present Illness - General Chief Complaint: Pain Stated Complaint: PAIN Time Seen by Provider: 05/15/19 16:00 History Source: Patient Exam Limitations: No Limitations Past History - Travel Traveled outside of the country in the last 30 days: No Close contact w/someone who was outside of country & ill: No - Past Medical History Allergies/Adverse Reactions: Allergies Allergy/AdvReac Type Severity Reaction Status Date / Time No Known Allergies Allergy Verified 05/15/19 15:39 Home Medications: Ambulatory Orders Cyclobenzaprine HCl [Flexeril -] 10 mg PO HS #10 tablet 05/15/19 Methylprednisolone [Medrol Dose César] 4 mg PO ASDIR #21 tablet 05/15/19 COPD: No - Immunization History Immunization Up to Date: Yes - Psycho Social/Smoking Cessation Hx Smoking History: Never smoked Have you smoked in the past 12 months: No Hx Alcohol Use: No Drug/Substance Use Hx: No Substance Use Type: None Hx Substance Use Treatment: No Review of Systems - Review of Systems Able to Perform ROS?: Yes Comments:: 05/15/19 16:07 CONSTITUTIONAL: Absent: fever, chills, diaphoresis, generalized weakness, malaise, loss of appetite HEENT: Absent: rhinorrhea, nasal congestion, throat pain, throat swelling, difficulty swallowing, mouth swelling, ear pain, eye pain, visual Changes CARDIOVASCULAR: Absent: chest pain, loss of consciousness, palpitations, irregular heart rate, peripheral edema RESPIRATORY: Absent: cough, shortness of breath, dyspnea with exertion, orthopnea, wheezing, stridor, hemoptysis GASTROINTESTINAL: Absent: abdominal pain, abdominal distension, nausea, vomiting, diarrhea, constipation, melena, hematochezia MUSCULOSKELETAL: Present: L shoulder pain, Neck pain Absent: myalgia, arthralgia, joint swelling SKIN: Absent: rash, itching, pallor NEUROLOGIC: Absent: headache, focal weakness or paresthesias, dizziness, unsteady gait, seizure, mental status changes, bladder or bowel incontinence PSYCHIATRIC: Absent: anxiety, depression, suicidal or homicidal ideation, hallucinations. Is the patient limited Telugu proficient: No *Physical Exam - Vital Signs Last Vital Signs Temp Pulse Resp BP Pulse Ox 98.4 F 63 18 136/54 L 99 05/15/19 15:37 05/15/19 15:37 05/15/19 15:37 05/15/19 15:37 05/15/19 15:37 - Physical Exam 05/15/19 16:07 GENERAL: Well developed, well nourished. Awake and alert. No acute distress. HEENT: Normocephalic, atraumatic. PERRLA, EOMI. No conjunctival pallor. Sclera are non- icteric. Moist mucous membranes. Oropharynx is clear. NECK: Supple. Full ROM. No lymphadenopathy. CARDIOVASCULAR: Regular rate and rhythm. No murmurs, rubs, or gallops. Distal pulses are 2+ and symmetric. PULMONARY: No evidence of respiratory distress. Lungs clear to auscultation bilaterally. No wheezing, rales or rhonchi. MUSCULOSKELETAL Tenderness palpation of the left paraspinous muscles of the C-spine with palpable knot. Tenderness palpation of the left trapezius muscle with palpable knot. Normal range of motion of the left shoulder however with pain on inversion. Normal range of motion at all joints. No bony deformities or tenderness. No CVA tenderness. EXTREMITIES: No cyanosis. No clubbing. No edema. No calf tenderness. SKIN: Warm and dry. Normal capillary refill. No rashes. No jaundice. NEUROLOGICAL: Alert, awake, appropriate. Cranial nerves 2-12 intact. No deficits to light touch and temperature in face, upper extremities and lower extremities. No motor deficits in the in face, upper extremities and lower extremities. Normoreflexic in the upper and lower extremities. Normal speech. Toes are down- going bilaterally. Gait is normal without ataxia. PSYCHIATRIC: Cooperative. Good eye contact. Appropriate mood and affect. Medical Decision Making - Medical Decision Making 05/15/19 16:48 The patient is a 48-year-old female with past medical history of a pinched nerve , presents to the ER today with left-sided jaw pain, neck pain and arm pain. She states the pain started 1 week ago. It is progressively gotten worse over the past week. She states that she is tried taking ibuprofen at home with little relief of the pain. She states she has been to physical therapy for this issue back in July which helped her symptoms for short period of time. She has not seen orthopedics. Denies chest pain, difficulty breathing, shortness of breath, nausea, vomiting and diarrhea. A/P: Cervical radiculopathy On exam patient has full range of motion of the left shoulder. She states that she has pain with internal rotation of the shoulder. She states that the pain is a pinching feeling down her arm, likely nerve pain. We will treat as a cervical radiculopathy and have patient follow-up with orthopedics. EKG from triage: Rate 61 bpm, normal sinus rhythm with sinus arrhythmia. Normal intervals and axis. Flattening of T wave in lead III otherwise EKG unremarkable. We will discharge home with strict return precautions. I discussed the physical exam findings, ancillary test results and final diagnoses with the patient. I answered all of the patient's questions. The patient was satisfied with the care received and felt comfortable with the discharge plan and treatment plan. The Patient agrees to follow up with the primary care physician/specialist within 24-72 hours. Return precautions were given. Discharge - Discharge Information Problems reviewed: Yes Clinical Impression/Diagnosis: Cervical radiculopathy Condition: Stable Disposition: HOME - Admission No - Follow up/Referral Referrals: Nano Wilkes MD [Primary Care Provider] - Danielito Stanton DO [Staff Physician] - - Patient Discharge Instructions Patient Printed Discharge Instructions: DI for Cervical Radiculopathy Additional Instructions: Your evaluated for your neck pain, jaw pain and shoulder pain today. It is most likely nerve pain coming from your neck. Please take the steroid pack as directed. Take the entire dose even if you feel better. Take the Flexeril at night before bed. Do not drink or drive after taking this medication as it may make you drowsy. You may apply warm packs to the area to help with pain. Please buy lidocaine 4% patches [id number] and put them over the area of most pain. Follow-up with orthopedics tomorrow. A referral has been provided for you. Return to the ER for any new or worsening symptoms including, chest pain, shortness of breath, difficulty breathing, vomiting. - Post Discharge Activity Work/Back to School Note: Back to Work
[2019-05-15] MEDS ORDERED: predniSONE 20 MG TABLET (UD) PO ONE (16:21)
[2019-05-15] MEDS ORDERED: CYCLOBENZAPRINE HCL 10 MG TABLET (FP) PO ONE (16:21)
[2019-05-15] MEDS ORDERED: KETOROLAC TROMETHAMINE 30 MG/1 ML VIAL IM ONE (16:21)
[2019-05-15] MEDS ORDERED: CYCLOBENZAPRINE HCL 10 MG TABLET (FP) ONE (16:27)
[2019-05-15] MEDS ORDERED: KETOROLAC TROMETHAMINE 30 MG/1 ML VIAL ONE (16:27)
[2019-05-15] MEDS ORDERED: predniSONE 20 MG TABLET (UD) ONE (16:27)
[2019-05-15] MEDS ORDERED: LIDOCAINE 5% TOPICAL PATCH TP ONE (16:47)
[2019-05-15] MEDS ORDERED: LIDOCAINE 5% TOPICAL PATCH ONE (16:56)
--- NOTE | 2019-05-16 09:59 | EKG ---
Test Reason : Blood Pressure : / mmHG Vent. Rate : 061 BPM Atrial Rate : 061 BPM P-R Int : 144 ms QRS Dur : 072 ms QT Int : 406 ms P-R-T Axes : 034 056 018 degrees QTc Int : 408 ms NORMAL SINUS RHYTHM WITH SINUS ARRHYTHMIA NONSPECIFIC ST ABNORMALITY ABNORMAL ECG WHEN COMPARED WITH ECG OF 19-JUL-2018 16:34, NO SIGNIFICANT CHANGE WAS FOUND Confirmed by PAMELA STOCK MD ([id number]) on 05/16/2019 9:59:33 AM Referred By: Confirmed By:PAMELA STOCK MD
== END 2019-05-15 17:00 | disposition home or self-care (01) ==
LOC: JERFT 15:33
PROC: 3E0233Z Introduction of Anti-inflammatory into Muscle, Percutaneous Approach (ICD-10-PCS; principal; 2019-05-15)
DX: M54.12 Radiculopathy, cervical region (principal); M62.838 Other muscle spasm
CPT/HCPCS: 93005; 93010; 96372; 99282-25